=== PATIENT | male | born 1980 | race Caucasian/White ===

== ENCOUNTER 2016-10-09 19:53 | Emergency (ER) | payer MEDICAID ==
[~2016-10-09] VITALS: Ht 165.1 cm; Wt 70.9 kg
[2016-10-09 21:54] LABS: INR 1.01 (0.9-1.15); Partial Thromboplastin Time 25.4 sec (22.64-33.71); Prothrombin Time 10.4 sec (9.37-12.3)
[2016-10-09 22:01] LABS: Albumin 2.9 g/dL (3.4-5.0); BUN/Creatinine Ratio 10.5; Potassium 3.5 mmol/L (3.5-5.1)
[2016-10-09 22:04] LABS: Bilirubin, Total 0.2 mg/dL (0.2-1.0)
[2016-10-09 22:34] LABS: Basophils # (auto) 0 uL; Basophils % (auto) 0.3 % (0.0-2.0); Eosinophils # (auto) 0.1 uL; Eosinophils % (auto) 2.2 % (0.0-7.0); Hematocrit 36.1 % (41.0-53.0); Hemoglobin 11.9 g/dL (13.5-17.5); Lymphocytes # (auto) 1.7 uL; Lymphocytes % (auto) 26.4 % (10.0-50.0); Mean Corpuscular Hemoglobin 29.4 pg (28.0-32.0); Mean Corpuscular Hgb Conc. 32.8 g/dL (32.0-36.0); Mean Corpuscular Volume 89.5 fL (80.0-100.0); Mean Platelet Volume 8.4 fL (7.4-10.4); Monocytes # (auto) 0.5 uL; Monocytes % (auto) 7.3 % (0.0-12.0); Neutrophils % (auto) 63.8 % (37.0-80.0); Platelet Count (auto) 296 10^3/uL (140-450); Red Cell Distribution Width 13.3 % (11.6-16.0); White Blood Cell 6.3 10^3/uL (4.4-10.8)
[2016-10-10 04:05] LABS: Urine Bilirubin Negative (Negative); Urine Blood Negative /uL (Negative); Urine Ca Oxalate Crystal FEW (None Seen); Urine Color Yellow (Yellow); Urine Glucose Normal (Normal); Urine Ketone Negative (Negative); Urine Mucus FEW (None Seen); Urine Nitrite Negative (Negative); Urine RBC 1 /hpf (0 - 3)
[2016-10-10 10:32] VITALS: BP 115/47
== END 2016-10-10 10:40 | disposition home or self-care (01) ==
LOC: ER 19:59
DX: K64.8 Other hemorrhoids (principal); G56.03 Carpal tunnel syndrome, bilateral upper limbs; F15.10 Other stimulant abuse, uncomplicated
CPT/HCPCS: 36415; 80053; 81001; 85025; 85610; 85730; 99284; G0434

== ENCOUNTER 2018-02-27 09:49 | Emergency (ER) | payer MEDICAID ==
[~2018-02-27] VITALS: Ht 167.6 cm; Wt 81.6 kg
[2018-02-27 09:58] VITALS: BP 99/63
[2018-02-27 10:32] LABS: Alcohol, Urine < 3.0 mg/dL (0-5); Amphetamine Screen, Urine POSITIVE (NEGATIVE); Barbiturate Scree,Urine NEGATIVE (NEGATIVE); Benzodiazephine Screen, Urine NEGATIVE (NEGATIVE); Cannabinoid Screen, Urine NEGATIVE (NEGATIVE); Cocaine Screen, Urine NEGATIVE (NEGATIVE); Opiate Scree,Urine NEGATIVE (NEGATIVE); Phencyclidine Screen, Urine NEGATIVE (NEGATIVE)
== END 2018-02-27 11:06 | disposition home or self-care (01) ==
LOC: ER 09:49
DX: L03.114 Cellulitis of left upper limb (principal); L03.113 Cellulitis of right upper limb; F15.10 Other stimulant abuse, uncomplicated
CPT/HCPCS: 80307

== ENCOUNTER 2018-03-04 16:56 | Emergency (ER) | payer MEDICAID ==
[2018-03-04 17:02] VITALS: BP 129/64
== END 2018-03-04 17:57 | disposition home or self-care (01) ==
LOC: ER 16:56
DX: S22.32XA Fracture of one rib, left side, initial encounter for closed fracture (principal); F15.10 Other stimulant abuse, uncomplicated; W01.0XXA Fall on same level from slipping, tripping and stumbling without subsequent striking against object, initial encounter; Y93.9 Activity, unspecified; Y99.8 Other external cause status; Y92.239 Unspecified place in hospital as the place of occurrence of the external cause
CPT/HCPCS: 71101

== ENCOUNTER 2018-03-31 18:28 | Emergency (ER) | payer MEDICAID ==
[~2018-03-31] VITALS: Ht 167.6 cm; Wt 77.1 kg
[2018-03-31 19:23] VITALS: BP 110/72
== END 2018-03-31 20:20 | disposition home or self-care (01) ==
LOC: EDBD 18:28 → ER 18:28
DX: S90.32XA Contusion of left foot, initial encounter (principal); S60.811A Abrasion of right wrist, initial encounter; S50.311A Abrasion of right elbow, initial encounter; S90.511A Abrasion, right ankle, initial encounter; F15.10 Other stimulant abuse, uncomplicated; V86.59XA Driver of other special all-terrain or other off-road motor vehicle injured in nontraffic accident, initial encounter; Y93.89 Activity, other specified; Y92.488 Other paved roadways as the place of occurrence of the external cause; Y99.8 Other external cause status
CPT/HCPCS: 73080; 73090; 73130; 73610; 73630

== ENCOUNTER 2023-03-27 21:49 | Inpatient (IN) | payer MEDICAID, OTHER ==
[~2023-03-27] VITALS: Ht 167.6 cm; Wt 71.3 kg
[2023-03-28 04:36] LABS: Basophils # (auto) 0 10 ^3/uL (0-0.2); Basophils % (auto) 0.2 % (0.0-2.0); Eosinophils # (auto) 0.2 10 ^3/uL (0-0.8); Eosinophils % (auto) 2.4 % (0.0-7.0); Hematocrit 38.6 % (41.0-53.0); Hemoglobin 12.9 g/dL (13.5-17.5); Lymphocytes # (auto) 1.7 10 ^3/uL (0.4-5.4); Lymphocytes % (auto) 23.1 % (10.0-50.0); Mean Corpuscular Hemoglobin 29.8 pg (28.0-32.0); Mean Corpuscular Hgb Conc. 33.4 g/dL (32.0-36.0); Mean Corpuscular Volume 89.1 fL (80.0-100.0); Monocytes # (auto) 0.5 10 ^3/uL (0-1.3); Monocytes % (auto) 6.9 % (0.0-12.0); Neutrophils # (auto) 5.1 10 ^3/uL (1.6-8.6); Neutrophils % (auto) 67.4 % (37.0-80.0); Nucleated Red Blood Cells % 0.2 %; Red Blood Cells 4.33 10^6/uL (4.5-5.90); Red Cell Distribution Width 14.1 % (11.8-14.3); White Blood Cell 7.6 10^3/uL (4.4-10.8)
[2023-03-28 04:47] LABS: Albumin 3.1 g/dL (3.4-5.0); Calcium 8.4 mg/dL (8.5-10.1)
[2023-03-28 04:50] LABS: BUN/Creatinine Ratio 18.2 (10.0-20.0); Bilirubin, Total 0.4 mg/dL (0.2-1.0); Total Protein 6.4 g/dL (6.4-8.2)
[2023-03-28] MEDS ORDERED: FAMOTIDINE INJECTION 40 MG in SODIUM CHL 0.9% 100 ML IV ONE (07:30)
[2023-03-28] MEDS ORDERED: SODIUM CHLORIDE 0.9% 1,000 ML IV ONE ×2 (07:30→08:45)
[2023-03-28] MEDS ORDERED: PANTOPRAZOLE 40mg/50ML NS AE 50 ML IV ONE (07:45)
[2023-03-28] MEDS ORDERED: PANTOPRAZOLE 80 MG in SODIUM CHL 0.9% 100 ML IV ONE (07:45)
[2023-03-28] MEDS ORDERED: OCTREOTIDE ACETATE 100 MCG in SODIUM CHL 0.9% 50 ML IV ONE (07:45)
[2023-03-28] MEDS ORDERED: MORPHINE SULFATE INJ 2 MG/ml SYRG IV PRN (08:45)
[2023-03-28] MEDS: metroNIDAZOLE 500MG/100ML 100 ML IV SCH ×3 (09:42→21:59)
[2023-03-28] MEDS: cefTRIAXone 1GM/50ML D5W 50 ML IV SCH (09:43)
[2023-03-28] MEDS: ONDANSETRON HCL 4 MG/2 ML VIAL IV PRN (09:44)
[2023-03-28 09:47] LABS: Cholesterol 140 mg/dL (< 200)
[2023-03-28 09:50] LABS: HDL Cholesterol 37 mg/dL (40-59); LDL Cholesterol 84 mg/dL (< 100); Triglycerides 122 mg/dL (< 150)
[2023-03-28] MEDS: OCTREOTIDE ACETATE 500 MCG in SODIUM CHL 0.9% 99 ML IV SCH ×2 (10:05→19:37)
[2023-03-28 10:09] LABS: Hepatitis B Surface Antibody Positive (Negative)
[2023-03-28 10:48] LABS: Hepatitis A Total Antibody Positive (Negative)
[2023-03-28] MEDS: SUCRALFATE 1 GM/10 ML ORAL SUSP PO SCH ×3 (11:52→21:59)
[2023-03-28 12:04] LABS: Hematocrit 34.2 % (41.0-53.0); Hemoglobin 11.2 g/dL (13.5-17.5)
[2023-03-28 14:50] LABS: Hepatitis C Antibody Reactive (Negative)
[2023-03-28 18:03] LABS: INR 1.05 (0.9-1.15); Partial Thromboplastin Time 25.9 SEC (24.5-34.5)
[2023-03-28 22:00] VITALS: BP 91/50
[2023-03-29] VITALS (7 sets, daily range): BP systolic 94–117; BP diastolic 53–65
[2023-03-29] MEDS: OCTREOTIDE ACETATE 500 MCG in SODIUM CHL 0.9% 99 ML IV SCH (04:17)
[2023-03-29 04:32] LABS: Urine Bacteria NONE SEEN /hpf (None Seen); Urine Blood Negative /uL (Negative); Urine Specific Gravity 1.004 (1.001-1.035); Urine WBC 5 /hpf (0 - 3)
[2023-03-29 04:46] LABS: Alcohol, Urine < 3.0 mg/dL (0-10); Amphetamine Screen, Urine POSITIVE (NEGATIVE); Barbiturate Scree,Urine NEGATIVE (NEGATIVE); Benzodiazephine Screen, Urine NEGATIVE (NEGATIVE); Cannabinoid Screen, Urine NEGATIVE (NEGATIVE); Cocaine Screen, Urine NEGATIVE (NEGATIVE)
[2023-03-29 04:55] LABS: Opiate Scree,Urine NEGATIVE (NEGATIVE); Phencyclidine Screen, Urine NEGATIVE (NEGATIVE)
[2023-03-29 06:18] LABS: Basophils # (auto) 0 10 ^3/uL (0-0.2); Basophils % (auto) 0.8 % (0.0-2.0); Eosinophils # (auto) 0.2 10 ^3/uL (0-0.8); Eosinophils % (auto) 3.2 % (0.0-7.0); Hematocrit 28.7 % (41.0-53.0); Hemoglobin 9.9 g/dL (13.5-17.5); Lymphocytes # (auto) 1.6 10 ^3/uL (0.4-5.4); Lymphocytes % (auto) 33.2 % (10.0-50.0); Mean Corpuscular Hemoglobin 30.3 pg (28.0-32.0); Mean Corpuscular Hgb Conc. 34.4 g/dL (32.0-36.0); Mean Corpuscular Volume 88.2 fL (80.0-100.0); Monocytes # (auto) 0.4 10 ^3/uL (0-1.3); Monocytes % (auto) 7.7 % (0.0-12.0); Neutrophils # (auto) 2.7 10 ^3/uL (1.6-8.6); Neutrophils % (auto) 55.1 % (37.0-80.0); Nucleated Red Blood Cells % 0.1 %; Red Blood Cells 3.25 10^6/uL (4.5-5.90); Red Cell Distribution Width 13.5 % (11.8-14.3); White Blood Cell 4.9 10^3/uL (4.4-10.8)
[2023-03-29] MEDS: SUCRALFATE 1 GM/10 ML ORAL SUSP PO SCH ×4 (06:24→21:52)
[2023-03-29] MEDS: metroNIDAZOLE 500MG/100ML 100 ML IV SCH ×3 (06:24→21:52)
[2023-03-29 06:37] LABS: Calcium 7.7 mg/dL (8.5-10.1); Potassium 3.9 mmol/L (3.5-5.1)
[2023-03-29] MEDS ORDERED: NALOXONE HCL 0.4 MG/ML VIAL ONE (08:03)
[2023-03-29] MEDS ORDERED: SODIUM CHLORIDE LOCK 10 ML ONE (08:04)
[2023-03-29] MEDS ORDERED: LIDOCAINE VISCOUS 2% 15ML UD ONE (08:04)
[2023-03-29] MEDS ORDERED: FLUMAZENIL 0.1 MG/ML INJ 10ML MDV IV ONE (08:04)
[2023-03-29] MEDS: cefTRIAXone 1GM/50ML D5W 50 ML IV SCH (09:51)
[2023-03-29] MEDS ORDERED: PANT40TA2 PO ×2 (11:02)
[2023-03-29] MEDS: MIDAZOLAM HCL 5 MG/ML-1ML VIAL ONE ×2 (11:21→11:25)
[2023-03-29] MEDS: diphenhdrAMINE HCL 50 MG/1 ML VL ONE ×2 (11:21→11:24)
[2023-03-29] MEDS: fentaNYL CITRATE 100 MCG/2 ML VL ONE ×2 (11:21→11:25)
[2023-03-29] MEDS ORDERED: SODIUM FERR GLUC 62.5MG/5ML 125 MG in SODIUM CHL 0.9% 100 ML IV ONE (12:15)
[2023-03-29] MEDS: PANTOPRAZOLE 40 MG/10 ML VIAL INJ IV SCH (21:52)
[2023-03-30 05:00] VITALS: BP 95/82
[2023-03-30] MEDS: metroNIDAZOLE 500MG/100ML 100 ML IV SCH (06:55)
[2023-03-30] MEDS: ONDANSETRON HCL 4 MG/2 ML VIAL IV PRN (06:55)
[2023-03-30] MEDS: SUCRALFATE 1 GM/10 ML ORAL SUSP PO SCH ×2 (06:55→11:58)
[2023-03-30 08:00] VITALS: BP 94/64
[2023-03-30 09:00] VITALS: BP 94/64
[2023-03-30] MEDS: cefTRIAXone 1GM/50ML D5W 50 ML IV SCH (10:18)
[2023-03-30] MEDS: PANTOPRAZOLE 40 MG/10 ML VIAL INJ IV SCH (10:18)
[2023-03-30] MEDS ORDERED: SUCR1TAB22 PO (10:27)
[2023-03-30] MEDS ORDERED: HYDR-4902 PO (10:27)
[2023-03-30] MEDS ORDERED: PANT40TA2 PO (10:27)
== END 2023-03-30 16:13 | disposition home or self-care (01) | DRG 241 ==
LOC: ER 21:49 → OVERFLOW 03-28 09:00 → CENTRAL 03-28 14:27
PROVIDERS: ADMIT Registered Nurse; ATTEND Internal Medicine
PROC: 0DB68ZX Excision of Stomach, Via Natural or Artificial Opening Endoscopic, Diagnostic (ICD-10-PCS; 2023-03-29)
PROC: 0DB48ZX Excision of Esophagogastric Junction, Via Natural or Artificial Opening Endoscopic, Diagnostic (ICD-10-PCS; 2023-03-29)
PROC: 0DB98ZX Excision of Duodenum, Via Natural or Artificial Opening Endoscopic, Diagnostic (ICD-10-PCS; principal; 2023-03-29 11:17)
DX: K25.4 Chronic or unspecified gastric ulcer with hemorrhage (principal); E44.1 Mild protein-calorie malnutrition; K52.9 Noninfective gastroenteritis and colitis, unspecified; K44.9 Diaphragmatic hernia without obstruction or gangrene; F15.90 Other stimulant use, unspecified, uncomplicated; Z86.19 Personal history of other infectious and parasitic diseases; Z68.25 Body mass index [BMI] 25.0-25.9, adult; K22.10 Ulcer of esophagus without bleeding; K26.9 Duodenal ulcer, unspecified as acute or chronic, without hemorrhage or perforation; K29.80 Duodenitis without bleeding
CPT/HCPCS: 36415; 71045; 74176; 80048; 80053; 80061; 80307; 81001; 82270; 83036; 83605; 83690; 84443; 84484; 85014; 85018; 85025; 85610; 85730; 86704; 86706; 86708; 86803; 86850; 86900; 86901; 87040; 87081; 87340; 96365; 96366; 96367; 96368; 96375; C9113; G0378; J0696; J2250; J2405; J3490

== ENCOUNTER → 2023-08-07 | Emergency (ER) | payer MEDICAID ==
[~2023-08-07] VITALS: Ht 165.1 cm; Wt 75.0 kg
[~2023-08-07] MED LIST: HYDR-4902 PO; LEVO500T91 PO; PANT40TA2 PO; SODIUM CHLORIDE 0.9% 1,000 ML IV ONE; SODIUM CHLORIDE 0.9% 1,000 ML IVB ONE; SUCR1TAB22 PO; cefTRIAXone 1GM/50ML D5W 50 ML IV ONE
[2023-08-07 13:48] LABS: Basophils # (auto) 0 10 ^3/uL (0-0.2); Basophils % (auto) 0.3 % (0.0-2.0); Neutrophils # (auto) 11.2 10 ^3/uL (1.6-8.6)
[2023-08-07 13:50] LABS: Eosinophils # (auto) 0.2 10 ^3/uL (0-0.8); Eosinophils % (auto) 1.4 % (0.0-7.0); Hematocrit 42.3 % (41.0-53.0); Hemoglobin 13.4 g/dL (13.5-17.5); Lymphocytes # (auto) 1.5 10 ^3/uL (0.4-5.4); Lymphocytes % (auto) 10.7 % (10.0-50.0); Mean Corpuscular Hemoglobin 24.7 pg (28.0-32.0); Mean Corpuscular Hgb Conc. 31.6 g/dL (32.0-36.0); Mean Corpuscular Volume 78.1 fL (80.0-100.0); Monocytes # (auto) 0.9 10 ^3/uL (0-1.3); Monocytes % (auto) 6.6 % (0.0-12.0); Nucleated Red Blood Cells % 0.1 %; Red Blood Cells 5.42 10^6/uL (4.5-5.90); Red Cell Distribution Width 19.7 % (11.8-14.3); White Blood Cell 13.9 10^3/uL (4.4-10.8)
[2023-08-07 14:05] LABS: Alanine Aminotransferase 18 U/L (7-40); Albumin 3.9 g/dL (3.2-4.8); Alkaline Phosphatase 90 U/L (46-116); Anion Gap 6 (5-15); Aspartate Aminotransferase 16 U/L (13-40); BUN/Creatinine Ratio 5.6 (10.0-20.0); Bilirubin, Total 0.5 mg/dL (0.2-1.0); Blood Urea Nitrogen 5 mg/dL (9-23); Calcium 8.8 mg/dL (8.7-10.4); Carbon Dioxide 27 mmol/L (20-30); Chloride 104 mmol/L (98-107); Glucose 105 mg/dL (74-106); Lipase 39 U/L (12-53); Potassium 3.9 mmol/L (3.5-5.1); Sodium 137 mmol/L (136-145); Total Protein 6.7 g/dL (5.7-8.2)
[2023-08-07 17:37] VITALS: BP 112/78; TEMP 98.2
[2023-08-07 17:38] VITALS: PULSE 79; RESP 18; O2SAT 98
== END | disposition home or self-care (01) ==
LOC: EDUNIT# 12:05 → ER 12:13 → EDBD 12:13
DX: J40 Bronchitis, not specified as acute or chronic (principal); R10.9 Unspecified abdominal pain; R07.89 Other chest pain; R51.9 Headache, unspecified; Z79.2 Long term (current) use of antibiotics; Z79.899 Other long term (current) drug therapy
CPT/HCPCS: 36415; 70450; 71045; 74176; 80053; 83690; 85025; 96365; 99285; J0696; J7030

== ENCOUNTER 2023-11-28 22:46 | Emergency (ER) | payer MEDICAID ==
[~2023-11-28] VITALS: Ht 167.6 cm; Wt 70.6 kg
[~2023-11-28 22:46] MED LIST changes: -SODIUM CHLORIDE 0.9% 1,000 ML IV ONE; -SODIUM CHLORIDE 0.9% 1,000 ML IVB ONE; -cefTRIAXone 1GM/50ML D5W 50 ML IV ONE
[2023-11-28 22:54] VITALS: BP 117/66; PULSE 108; RESP 16; O2SAT 99
[2023-11-28] MEDS ORDERED: ONDANSETRON ODT 4 MG TAB PO ONE (23:30)
[2023-11-28] MEDS ORDERED: KETOROLAC TROMETH 30 MG/ML 1ML VIAL IM ONE (23:30)
[2023-11-29 00:09] LABS: Basophils # (auto) 0 10 ^3/uL (0-0.2); Basophils % (auto) 0.4 % (0.0-2.0); Eosinophils # (auto) 0.1 10 ^3/uL (0-0.8); Eosinophils % (auto) 1.4 % (0.0-7.0); Hematocrit 32.9 % (41.0-53.0); Hemoglobin 10.8 g/dL (13.5-17.5); Lymphocytes % (auto) 25.7 % (10.0-50.0); Mean Corpuscular Hemoglobin 28.1 pg (28.0-32.0); Mean Corpuscular Hgb Conc. 32.8 g/dL (32.0-36.0); Mean Corpuscular Volume 85.7 fL (80.0-100.0); Monocytes # (auto) 0.4 10 ^3/uL (0-1.3); Monocytes % (auto) 5.6 % (0.0-12.0); Neutrophils # (auto) 5.1 10 ^3/uL (1.6-8.6); Neutrophils % (auto) 66.9 % (37.0-80.0); Red Blood Cells 3.84 10^6/uL (4.5-5.90); Red Cell Distribution Width 15.8 % (11.8-14.3); White Blood Cell 7.6 10^3/uL (4.4-10.8)
[2023-11-29 00:19] LABS: Chloride 109 mmol/L (98-107); Potassium 4.2 mmol/L (3.5-5.1); Sodium 140 mmol/L (136-145)
[2023-11-29 00:20] LABS: Anion Gap 7 (5-15); Carbon Dioxide 24 mmol/L (20-30)
[2023-11-29 00:21] LABS: Calcium 8.5 mg/dL (8.7-10.4)
[2023-11-29 00:25] LABS: BUN/Creatinine Ratio 31.7 (10.0-20.0); Blood Urea Nitrogen 32 mg/dL (9-23); Glucose 166 mg/dL (74-106)
== END 2023-11-29 02:31 | disposition left against medical advice (07) ==
LOC: ER 22:46
DX: K92.1 Melena (principal); F15.90 Other stimulant use, unspecified, uncomplicated; Z79.899 Other long term (current) drug therapy
CPT/HCPCS: 36415; 74176; 80048; 85025

== ENCOUNTER 2023-11-29 06:17 | Inpatient (IN) | payer MEDICAID, OTHER ==
[~2023-11-29] VITALS: Ht 167.6 cm; Wt 70.6 kg
[2023-11-29] MEDS: NALOXONE HCL 0.4 MG/ML VIAL IM ONE (07:50)
[2023-11-29] MEDS: NALOXONE HCL 0.4 MG/ML VIAL ONE (07:50)
[2023-11-29] MEDS: SODIUM CHLORIDE 0.9% 1,000 ML IV ONE (07:51)
[2023-11-29] MEDS: ONDANSETRON HCL 4 MG/2 ML VIAL IV ONE (07:53)
[2023-11-29] MEDS: PANTOPRAZOLE 40 MG/10 ML VIAL INJ IV ONE (07:53)
[2023-11-29 08:05] LABS: Basophils # (auto) 0.1 10 ^3/uL (0-0.2); Basophils % (auto) 0.7 % (0.0-2.0); Eosinophils # (auto) 0.1 10 ^3/uL (0-0.8); Eosinophils % (auto) 1.6 % (0.0-7.0); Hematocrit 29.2 % (41.0-53.0); Hemoglobin 9.6 g/dL (13.5-17.5); Lymphocytes # (auto) 1.9 10 ^3/uL (0.4-5.4); Lymphocytes % (auto) 24.2 % (10.0-50.0); Mean Corpuscular Hemoglobin 28.5 pg (28.0-32.0); Mean Corpuscular Volume 86.2 fL (80.0-100.0); Monocytes # (auto) 0.5 10 ^3/uL (0-1.3); Monocytes % (auto) 6.6 % (0.0-12.0); Neutrophils # (auto) 5.3 10 ^3/uL (1.6-8.6); Neutrophils % (auto) 66.9 % (37.0-80.0); Red Blood Cells 3.39 10^6/uL (4.5-5.90); Red Cell Distribution Width 16.2 % (11.8-14.3)
[2023-11-29] MEDS: FLUMAZENIL 0.1 MG/ML INJ 10ML MDV IV ONE ×2 (08:29→08:30)
[2023-11-29 08:51] VITALS: O2SAT 98
[2023-11-29 09:08] LABS: Chloride 111 mmol/L (98-107); Sodium 139 mmol/L (136-145)
[2023-11-29 09:11] LABS: Anion Gap 5 (5-15); Calcium 7.3 mg/dL (8.7-10.4); Carbon Dioxide 23 mmol/L (20-30)
[2023-11-29 09:16] LABS: Alkaline Phosphatase 49 U/L (46-116); Glucose 105 mg/dL (74-106)
[2023-11-29 09:18] LABS: Albumin 2.7 g/dL (3.2-4.8); Aspartate Aminotransferase 17 U/L (13-40); Bilirubin, Total 0.2 mg/dL (0.2-1.0); Total Protein 4.5 g/dL (5.7-8.2)
[2023-11-29 09:25] LABS: Alanine Aminotransferase 25 U/L (7-40); BUN/Creatinine Ratio 28.4 (10.0-20.0); Blood Urea Nitrogen 23 mg/dL (9-23); Lipase 22 U/L (12-53); Potassium 4.2 mmol/L (3.5-5.1)
[2023-11-29] MEDS ORDERED: ONDANSETRON HCL 4 MG/2 ML VIAL IV PRN (10:45)
[2023-11-29] MEDS ORDERED: ACETAMINOPHEN 325 MG TAB PO PRN (10:45)
[2023-11-29] MEDS: IOHEXOL 300 MG/ML 100ML BOTTLE IJ ONE (10:45)
[2023-11-29] MEDS: SODIUM CHLORIDE 0.9% 1,000 ML IV SCH (10:56)
[2023-11-29] MEDS: HYDROcodone-ACET 5/325MG TAB PO PRN (13:50)
[2023-11-29 14:23] LABS: Hematocrit 27.3 % (41.0-53.0); Hemoglobin 8.8 g/dL (13.5-17.5)
[2023-11-29 17:09] LABS: Urine Bacteria FEW /hpf (None Seen); Urine Blood Negative /uL (Negative); Urine Clarity Clear (Clear); Urine Color Colorless (Yellow); Urine Hyaline Cast FEW /lpf (0 - 2); Urine Protein, UAD Negative (Negative); Urine Urobilinogen Normal (Negative); Urine WBC 2 /hpf (0 - 3); Urine pH 5.5 (5.0-8.0)
[2023-11-29 17:23] LABS: Amphetamine Screen, Urine Pos (NEGATIVE); Barbiturate Scree,Urine Neg (NEGATIVE); Benzodiazephine Screen, Urine Neg (NEGATIVE); Cocaine Screen, Urine Neg (NEGATIVE); Opiate Scree,Urine Neg (NEGATIVE); Phencyclidine Screen, Urine Neg (NEGATIVE)
[2023-11-29 17:24] LABS: Cannabinoid Screen, Urine Neg (NEGATIVE)
[2023-11-29 20:45] VITALS: PULSE 82; RESP 14; O2SAT 99
[2023-11-29] MEDS: PANTOPRAZOLE 40 MG/10 ML VIAL INJ IV SCH (22:36)
[2023-11-30 05:20] LABS: Basophils # (auto) 0 10 ^3/uL (0-0.2); Lymphocytes # (auto) 2.4 10 ^3/uL (0.4-5.4); Monocytes # (auto) 0.4 10 ^3/uL (0-1.3)
[2023-11-30 05:24] LABS: Basophils % (auto) 0.5 % (0.0-2.0); Eosinophils # (auto) 0.1 10 ^3/uL (0-0.8); Eosinophils % (auto) 1.9 % (0.0-7.0); Hematocrit 23.7 % (41.0-53.0); Hemoglobin 7.9 g/dL (13.5-17.5); Lymphocytes % (auto) 31.6 % (10.0-50.0); Mean Corpuscular Hemoglobin 28.8 pg (28.0-32.0); Mean Corpuscular Hgb Conc. 33.4 g/dL (32.0-36.0); Mean Corpuscular Volume 86.2 fL (80.0-100.0); Monocytes % (auto) 5.6 % (0.0-12.0); Neutrophils # (auto) 4.5 10 ^3/uL (1.6-8.6); Neutrophils % (auto) 60.4 % (37.0-80.0); Red Blood Cells 2.75 10^6/uL (4.5-5.90); Red Cell Distribution Width 15.6 % (11.8-14.3); White Blood Cell 7.5 10^3/uL (4.4-10.8)
[2023-11-30 05:34] LABS: INR 1.02 (0.9-1.15); Prothrombin Time 10.7 sec (9.3-11.8)
[2023-11-30 05:38] LABS: Alkaline Phosphatase 52 U/L (46-116)
[2023-11-30 05:39] LABS: Alanine Aminotransferase 24 U/L (7-40); Anion Gap 4 (5-15); Aspartate Aminotransferase 20 U/L (13-40); BUN/Creatinine Ratio 24.4 (10.0-20.0); Bilirubin, Total 0.4 mg/dL (0.2-1.0); Blood Urea Nitrogen 21 mg/dL (9-23); Calcium 8.1 mg/dL (8.5-10.1); Carbon Dioxide 24 mmol/L (20-30); Chloride 110 mmol/L (98-107); Glucose 106 mg/dL (74-106); Potassium 4.4 mmol/L (3.5-5.1); Sodium 138 mmol/L (136-145)
[2023-11-30 08:29] VITALS: PULSE 82; RESP 19; O2SAT 99
[2023-11-30] MEDS ORDERED: LIDOCAINE VISCOUS 2% 15ML UD ONE (11:05)
[2023-11-30] MEDS ORDERED: SODIUM CHLORIDE LOCK 10 ML ONE (11:06)
[2023-11-30] MEDS: MIDAZOLAM HCL 5 MG/ML-1ML VIAL ONE (15:42)
[2023-11-30] MEDS: diphenhdrAMINE HCL 50 MG/1 ML VL ONE (15:42)
[2023-11-30] MEDS: fentaNYL CITRATE 100 MCG/2 ML VL ONE (15:42)
[2023-11-30] MEDS: diphenhdrAMINE HCL 50 MG/1 ML VL IV ONE (15:45)
[2023-11-30 15:56] VITALS: O2SAT 98
[2023-11-30] MEDS: SUCRALFATE 1 GM/10 ML ORAL SUSP PO SCH (17:00)
[2023-11-30 20:00] VITALS: BP 104/56; PULSE 92; RESP 18; TEMP 97.9; O2SAT 100
[2023-11-30 22:00] VITALS: BP 104/56; PULSE 92; RESP 18; TEMP 97.9; O2SAT 100
[2023-12-01] VITALS (11 sets, daily range): BP systolic 92–108; BP diastolic 49–60; PULSE 55–87; RESP 16–20; TEMP 98–98.6; O2SAT 93–100
[2023-12-01] MEDS ORDERED: SUCR1TAB22 PO (10:01)
[2023-12-01] MEDS ORDERED: PANT40T PO (10:01)
[2023-12-01] MEDS ORDERED: ZOFR4T PO (10:02)
[2023-12-01 13:05] LABS: Basophils # (auto) 0 10 ^3/uL (0-0.2); Eosinophils # (auto) 0.1 10 ^3/uL (0-0.8); Eosinophils % (auto) 1.5 % (0.0-7.0); Monocytes # (auto) 0.5 10 ^3/uL (0-1.3)
[2023-12-01 13:07] LABS: Basophils % (auto) 0.3 % (0.0-2.0); Hematocrit 18.8 % (41.0-53.0); Lymphocytes # (auto) 1.6 10 ^3/uL (0.4-5.4); Lymphocytes % (auto) 18.6 % (10.0-50.0); Mean Corpuscular Hemoglobin 29.4 pg (28.0-32.0); Mean Corpuscular Hgb Conc. 33.8 g/dL (32.0-36.0); Mean Corpuscular Volume 86.8 fL (80.0-100.0); Monocytes % (auto) 5.9 % (0.0-12.0); Neutrophils # (auto) 6.2 10 ^3/uL (1.6-8.6); Neutrophils % (auto) 73.7 % (37.0-80.0); Nucleated Red Blood Cells % 0.1 %; Red Blood Cells 2.16 10^6/uL (4.5-5.90); Red Cell Distribution Width 15.3 % (11.8-14.3); White Blood Cell 8.5 10^3/uL (4.4-10.8)
[2023-12-01 13:18] LABS: Hemoglobin 6.3 g/dL (13.5-17.5)
[2023-12-02 05:00] VITALS: BP 99/61; PULSE 59; RESP 18; TEMP 98; O2SAT 98
[2023-12-02 08:15] VITALS: BP 108/47; PULSE 77; RESP 16; TEMP 97.9
[2023-12-02 08:21] VITALS: BP 108/47; PULSE 77; RESP 16; TEMP 97.9; O2SAT 100
[2023-12-02] MEDS ORDERED: ZOFR4T PO (11:39)
[2023-12-02] MEDS ORDERED: SUCR1TAB22 PO (11:39)
[2023-12-02] MEDS ORDERED: PANT40T PO (11:39)
[2023-12-02 12:12] LABS: Basophils # (auto) 0 10 ^3/uL (0-0.2); Basophils % (auto) 0.6 % (0.0-2.0); Eosinophils # (auto) 0.1 10 ^3/uL (0-0.8); Eosinophils % (auto) 2.5 % (0.0-7.0); Hematocrit 23.3 % (41.0-53.0); Hemoglobin 7.7 g/dL (13.5-17.5); Lymphocytes # (auto) 1.2 10 ^3/uL (0.4-5.4); Lymphocytes % (auto) 22.3 % (10.0-50.0); Mean Corpuscular Hemoglobin 28.7 pg (28.0-32.0); Monocytes # (auto) 0.4 10 ^3/uL (0-1.3); Monocytes % (auto) 7.4 % (0.0-12.0); Neutrophils # (auto) 3.6 10 ^3/uL (1.6-8.6); Neutrophils % (auto) 67.2 % (37.0-80.0); Nucleated Red Blood Cells % 0.1 %; Red Blood Cells 2.67 10^6/uL (4.5-5.90); Red Cell Distribution Width 15.9 % (11.8-14.3); White Blood Cell 5.3 10^3/uL (4.4-10.8)
[2023-12-02 13:39] VITALS: BP 100/56; PULSE 86; RESP 17; TEMP 98; O2SAT 98
== END 2023-12-02 15:19 | disposition home or self-care (01) | DRG 241 ==
LOC: ER 06:17 → OVERFLOW 10:38 → UNDODISIN 11-30 17:30 → WEST WING 11-30 18:06
PROVIDERS: ADMIT Nurse Practitioner Family; ATTEND Family Medicine
PROC: 0DB98ZX Excision of Duodenum, Via Natural or Artificial Opening Endoscopic, Diagnostic (ICD-10-PCS; 2023-11-30)
PROC: 0DB68ZX Excision of Stomach, Via Natural or Artificial Opening Endoscopic, Diagnostic (ICD-10-PCS; 2023-11-30)
PROC: 30233N1 Transfusion of Nonautologous Red Blood Cells into Peripheral Vein, Percutaneous Approach (ICD-10-PCS; principal; 2023-12-01)
DX: K26.4 Chronic or unspecified duodenal ulcer with hemorrhage (principal); E43 Unspecified severe protein-calorie malnutrition; I95.9 Hypotension, unspecified; K29.91 Gastroduodenitis, unspecified, with bleeding; D62 Acute posthemorrhagic anemia; F15.10 Other stimulant abuse, uncomplicated; B19.20 Unspecified viral hepatitis C without hepatic coma; K44.9 Diaphragmatic hernia without obstruction or gangrene; Z68.25 Body mass index [BMI] 25.0-25.9, adult; Z87.11 Personal history of peptic ulcer disease
CPT/HCPCS: 36415; 43239; 74177; 80053; 80307; 81001; 82140; 83690; 85014; 85018; 85025; 85610; 86850; 86900; 86901; 86920; 96361; 96372; 96374; 96375; C9113; G0378; J2250; J2405

== ENCOUNTER 2023-12-16 11:26 | Emergency (ER) | payer OTHER ==
[~2023-12-16] VITALS: Ht 167.6 cm; Wt 73.0 kg
[~2023-12-16 11:26] MED LIST changes: +PANT40T PO; +ZOFR4T PO
[2023-12-16] MEDS: SODIUM CHLORIDE 0.9% 1,000 ML IV ONE (12:30)
[2023-12-16 14:03] VITALS: BP 100/64; PULSE 97; RESP 17; TEMP 97.7; O2SAT 100
== END 2023-12-16 14:05 | disposition home or self-care (01) ==
LOC: ER 11:26 → EDBD 11:26 → EDUNIT# 11:26 → ER 14:04
DX: R55 Syncope and collapse (principal); F15.10 Other stimulant abuse, uncomplicated
CPT/HCPCS: 70450; 93005; 96360; 99284; J7030